=== PATIENT | female | born 1995 | race Caucasian/White ===

== ENCOUNTER 2021-07-09 15:38 | Emergency (ER) | payer SELFPAY ==
[2021-07-09] MEDS ORDERED: Bacitracin Oint 1 GM U/D Packet TOP ONE (18:30)
--- NOTE | 2021-07-09 18:53 | EDM.PDOC ---
ED HPI GENERAL MEDICAL PROBLEM - General Chief Complaint: Laceration Stated Complaint: THUMB LACERATION CUTTING PICKLES Time Seen by Provider: 07/09/21 18:30 Source of Information: Reports: Patient History Limitations: Reports: No Limitations - History of Present Illness INITIAL COMMENTS - FREE TEXT/NARRATIVE: 26-year-old female presenting to the ED for evaluation of a laceration to her left pad of the thumb. The patient was cutting pickles to make eggs salad sandwich today when she slipped cutting her thumb. She has a 1 cm flap laceration over the pad of the thumb. Bleeding is currently controlled. Patient's last tetanus was in 2019. Patient only has some anesthesia to the area that is avulsed but the remainder of the thumb is normal. Good capillary refill. The laceration goes into the dermal tissue but does not go into the subcutaneous tissue. Left Finger-Thumb Pain Score (Numeric/FACES): 3 - Related Data Allergies Allergy/AdvReac Type Severity Reaction Status Date / Time No Known Allergies Allergy Verified 07/09/21 18:45 Home Meds: Home Meds NK [No Known Home Meds] 07/09/21 [History] ED ROS GENERAL - Review of Systems Review Of Systems: See Below Constitutional: Reports: No Symptoms Musculoskeletal: Reports: Hand Pain (Left thumb pain secondary to laceration) Skin: Reports: Wound (1 cm avulsion laceration on the pad of the left thumb) ED EXAM, SKIN/RASH Exam: See Below Exam Limited By: No Limitations General Appearance: Alert, No Apparent Distress, Anxious Extremities: Normal Range of Motion, Normal Capillary Refill, Other (1 cm flap laceration on the pad of the left thumb) Neurological: Alert, Oriented, Normal Cognition, No Motor/Sensory Deficits Skin: Warm, Dry, Wound/Incision (1 cm avulsion laceration on the pad of the left thumb going into the dermal tissue but not subcutaneous tissue. Bleeding is currently controlled.) ED SKIN PROCEDURES - Laceration/Wound Repair Left Distal Digit - 1st (Thumb) Appearance: Superficial, Other (Avulsion laceration) Distal NVT: Neuro & Vascular Intact Anesthetic Type: Local Local Anesthesia - Lidocaine (Xylocaine): 1% Plain Local Anesthetic Volume: 3cc Skin Prep: Chlorhexidine (Hibiciens) Exploration/Debridement/Repair: Wound Explored, In a Bloodless Field, Explored to Base Closed with: Sutures Lac/Wound length In cm: 1.0 Suture Size: 4-0 # of Sutures: 3 Suture Type: Nylon, Interrupted Sterile Dressing Applied: Nurse Tetanus Status Addressed: Yes Complications: No Course - Vital Signs Last Recorded V/S: Last Vital Signs Temp 36.2 C 07/09/21 18:43 Pulse 75 07/09/21 18:43 Resp 16 07/09/21 18:43 BP 144/84 H 07/09/21 18:43 Pulse Ox 100 07/09/21 18:43 - Orders/Labs/Meds Meds: Medications Discontinued Medications Generic Name Dose Route Start Last Admin Trade Name Sukhdeep PRN Reason Stop Dose Admin Bacitracin 1 dose 07/09/21 18:30 Bacitracin Oint 1 Gm U/D Packet TOP 07/09/21 18:31 ONETIME ONE Lidocaine HCl 5 ml 07/09/21 18:30 Lidocaine 1% 5 Ml Sdv INJECT 07/09/21 18:31 ONETIME ONE Departure - Departure Time of Disposition: 18:50 Disposition: Home, Self-Care 01 Clinical Impression: Laceration of left thumb Qualifiers: Encounter type: initial encounter Damage to nail status: without damage Foreign body presence: without foreign body Qualified Code(s): S61.012A - Laceration without foreign body of left thumb without damage to nail, initial encounter - Discharge Information Referrals: PCP,None [Primary Care Provider] - Care Plan Goals: The sutures will need to be removed in 7 to 10 days which can be done at your primary care provider's office. Please keep the wound clean and dry for the next 24 hours until the scab forms. You will want a wear gloves when working in anyone's mouth at work. Apply a light coating of bacitracin to the wound twice daily for the next 3 to 4 days. I have also included a prescription for cephalexin to treat for infection as you were cutting food when this occurred. Take Tylenol or ibuprofen for pain. Sepsis Event Note (ED) - Evaluation Sepsis Screening Result: No Definite Risk - Focused Exam Vital Signs: Vital Signs Temp Pulse Resp BP Pulse Ox 07/09/21 18:43 36.2 C 75 16 144/84 H 100 07/09/21 18:33 36.2 C 75 16 144/84 H 100 - Problem List & Annotations (1) Laceration of left thumb SNOMED Code(s): 05465516499531087 Code(s): S61.012A - LACERATION W/O FB OF LEFT THUMB W/O DAMAGE TO NAIL, INIT Status: Acute Priority: Low Current Visit: Yes Qualifiers: Encounter type: initial encounter Damage to nail status: without damage Foreign body presence: without foreign body Qualified Code(s): S61.012A - Laceration without foreign body of left thumb without damage to nail, initial encounter - Problem List Review Problem List Initiated/Reviewed/Updated: Yes
== END 2021-07-09 19:01 | disposition home or self-care (01) ==
LOC: JP.ED 15:38
DX: S61.012A Laceration without foreign body of left thumb without damage to nail, initial encounter (principal); W26.8XXA Contact with other sharp object(s), not elsewhere classified, initial encounter
CPT/HCPCS: 12001; 99282-25